=== PATIENT | female | born 1970 | race Caucasian/White ===

== ENCOUNTER 2021-03-23 08:04 | Outpatient (CLI) | payer BC ==
[2021-03-23] MEDS ORDERED: DIATR MEGLU/DIATRIZ SOD 30 ML SOLUTION PO ONE (08:20)
== END 2021-03-23 16:00 | disposition home or self-care (01) ==
LOC: SCT 08:04
PROVIDERS: ATTEND Specialist
DX: N85.2 Hypertrophy of uterus (principal); K44.9 Diaphragmatic hernia without obstruction or gangrene; R19.00 Intra-abdominal and pelvic swelling, mass and lump, unspecified site; Z98.84 Bariatric surgery status; Z90.49 Acquired absence of other specified parts of digestive tract
CPT/HCPCS: 74177; 76376; Q9964; Q9967

== ENCOUNTER 2021-04-04 05:50 | Day surgery (SDC) | payer BC, SELFPAY ==
[2021-03-30 13:00] LABS: BILIRUBIN,URINE NEGATIVE (NEGATIVE); BLOOD, URINE NEGATIVE (NEGATIVE); COLOR,URINE YELLOW (YELLOW); GLUCOSE,URINE NEGATIVE (NEGATIVE); KETONES,URINE NEGATIVE (NEGATIVE); LEUKOCYTE ESTERASE ,URINE 2+ (NEGATIVE); NITRITE, URINE NEGATIVE (NEGATIVE); PROTEIN URINE NEGATIVE (NEGATIVE)
[2021-03-30 13:01] LABS: CLARITY/URINE SLIGHTLY HAZY (CLEAR)
[2021-03-30 13:35] LABS: BASOPHILS % (AUTO) 0.4 % (0.0-2.0); EOSINOPHILS # (AUTO) 0.3 K/uL (0.0-0.4); EOSINOPHILS % (AUTO) 4.9 % (0.0-4.0); HEMATOCRIT 39.7 % (36-48); LYMPHOCYTES # (AUTO) 2.3 K/uL (1.0-5.5); LYMPHOCYTES % (AUTO) 36.8 % (20.5-51.5); MEAN CORPUSCULAR HEMOGLOBIN 28 pg (27-31); MEAN CORPUSCULAR HGB CONC 33 % (32-36); MEAN CORPUSCULAR VOLUME 85 fL (79.0-98.0); MONOCYTES # (AUTO) 0.6 K/uL (0.0-1.0); MONOCYTES % (AUTO) 9.1 % (1.7-9.3); NEUTROPHILS % (AUTO) 48.8 % (40.0-70.0); PLATELET COUNT (AUTO) 259 K/uL (130-430); RED BLOOD CELL COUNT(AUTO) 4.68 MIL/uL (4.2-6.2); RED CELL DISTRIBUTION WIDTH 15.3 % (9.0-15.0); WHITE BLOOD COUNT (AUTO) 6.2 K/uL (4.8-10.8)
[2021-03-30 13:40] LABS: RBC,URINE 0-3 /HPF (0-3)
[2021-03-30 13:41] LABS: BACTERIA,URINE RARE /HPF (None Seen); MUCUS,URINE 1+ /LPF (None Seen)
[~2021-04-04] VITALS: Ht 162.6 cm; Wt 70.3 kg
[2021-04-04] MEDS ORDERED: LR 1,000 ML IV.SOLN IV ONE (08:11)
[2021-04-04] MEDS ORDERED: NS 1000 ML IV.SOLN IV ONE (08:11)
[2021-04-04] MEDS ORDERED: NS IRRIG SOLN 1000 ML IR ONE (08:11)
[2021-04-04] MEDS ORDERED: CEFAZOLIN 2 GM IVPB PREMIX 50 ML IV ONE (08:11)
[2021-04-04] MEDS ORDERED: fentaNYL CITRATE/PF 100 MCG/2 ML AMP IVP ONE (08:11)
[2021-04-04] MEDS ORDERED: METOCLOPRAMIDE HCL 10 MG/2 ML VIAL IVP ONE (08:11)
[2021-04-04] MEDS ORDERED: SEVOFLURANE 15 MIN GAS INH ONE (08:11)
[2021-04-04] MEDS ORDERED: GLYCOPYRROLATE 0.2 MG/ML VIAL IJ ONE (08:11)
[2021-04-04] MEDS ORDERED: MIDAZOLAM HCL 5 MG/5 ML VIAL IVP ONE (08:11)
[2021-04-04] MEDS ORDERED: KETOROLAC TROMETHAMINE 30 MG VIAL IVP ONE ×2 (08:11→11:00)
[2021-04-04] MEDS ORDERED: HYDROmorphone 2 MG/ML VIAL IVP ONE (08:11)
[2021-04-04] MEDS ORDERED: PROPOFOL 200MG/ 20ML VIAL (DIPRIVAN) IV ONE (08:11)
[2021-04-04] MEDS ORDERED: ONDANSETRON HCL 4 MG/2 ML VIAL IVP ONE (08:11)
[2021-04-04] MEDS ORDERED: DEXAMETHASONE SOD PHOSPHATE 4 MG/ML VIAL IVP ONE (08:11)
[2021-04-04] MEDS ORDERED: BUPIVACAINE /PF 0.5% 30 ML VIAL INJ ONE (08:11)
[2021-04-04] MEDS ORDERED: ROCURONIUM BROMIDE 10 MG/ML (ZEMURON) IV ONE (08:11)
[2021-04-04] MEDS ORDERED: ONDANSETRON HCL 4 MG/2 ML VIAL IVP PRN ×2 (09:15→09:45)
[2021-04-04] MEDS ORDERED: HYDROmorphone 1 MG/ML INJ. CARTRIDGE IVP PRN ×2 (09:15→10:15)
[2021-04-04] MEDS ORDERED: LABETALOL 100 MG/ 20ML VIAL IVP PRN (09:15)
[2021-04-04] MEDS ORDERED: KETOROLAC TROMETHAMINE 30 MG VIAL IVP PRN (09:15)
[2021-04-04] MEDS ORDERED: NALOXONE HCL 0.4 MG/ML AMP (NARCAN) IVP PRN (09:15)
[2021-04-04] MEDS ORDERED: MEPERIDINE HCL/PF 25 MG/ML DISP.SYRIN IVP PRN (09:15)
[2021-04-04] MEDS ORDERED: LR 1,000 ML IV SCH (09:15)
[2021-04-04] MEDS ORDERED: OXYCODONE/ACETAMINOPHEN 5-325 TABLET PO PRN ×2 (09:45)
[2021-04-04] MEDS ORDERED: HYDROcodone/ACETAMIN 5-325 MG TAB (NORCO/ VICODIN) PO PRN (09:45)
[2021-04-04] MEDS ORDERED: HYDROmorphone 1 MG/ML INJ. CARTRIDGE IVP ONE (10:20)
[2021-04-04 10:50] VITALS: BP_SYST 117
== END 2021-04-04 12:45 | disposition home or self-care (01) ==
LOC: SMU 05:50 → SDS 05:50
PROVIDERS: ATTEND Specialist
DX: N94.6 Dysmenorrhea, unspecified (principal); R10.2 Pelvic and perineal pain; R19.00 Intra-abdominal and pelvic swelling, mass and lump, unspecified site; R93.5 Abnormal findings on diagnostic imaging of other abdominal regions, including retroperitoneum; R19.09 Other intra-abdominal and pelvic swelling, mass and lump; I10 Essential (primary) hypertension; Z79.899 Other long term (current) drug therapy; Z20.822 Contact with and (suspected) exposure to COVID-19
CPT/HCPCS: 36415; 58661; 81000; 84703; 85025; 87070; 87086; 88108; 88305; 88341; 88342; 88360; C1727; C1782; J0690; J1100; J1170 ×2; J1885; J2250; J2405; J2704; J2765; J3010; J3490 ×2; J7030; J7120; U0003; E0190